=== PATIENT | female | born 1990 | race Caucasian/White ===

== ENCOUNTER 2018-06-11 09:20 | Inpatient (IN) | payer SELFPAY ==
[2018-06-11] VITALS (31 sets, daily range): BP systolic 97–136; BP diastolic 46–91; PULSE 61–103; TEMP 98.1–99
[~2018-06-11] VITALS: Ht 177.8 cm; Wt 84.1 kg
--- NOTE | 2018-06-11 09:20 | NUR ---
Patient to LR 5 via wheelchair, changed into gown, FHR/TOCO monitors placed and explained. Patient states "[place] a little trickle of fluid around 0400 this morning and then this morning I put a light day pad on and noticed wetness towards the front, then put a bigger pad and noticed more clear/pinkish fluid, feeling small cramps/small amount of pressure", Denies vagnial bleeding or regular contractions. 0930: SVE-1/60/-2 and no fluid noted-two negative amniotests at this time. VSS and assessment completed. Plan of care discussed and will continue to monitor.
[2018-06-11] MEDS ORDERED: LEVOXYL0.05 MG PO (09:34)
[2018-06-11] MEDS ORDERED: STOOL SOFTENER100 M2 PO (09:35)
[2018-06-11] MEDS ORDERED: CALCIUM CARBON650 M2 (09:35)
[2018-06-11] MEDS ORDERED: PRENATAL MVI (09:35)
--- NOTE | 2018-06-11 09:43 | NUR ---
0943: One contraction tracing at this time. Lasting around 1 minute, Patient states she does not feel any contractions.
--- NOTE | 2018-06-11 09:47 | NUR ---
0947: Patient off monitors to ambulate at this time.
--- NOTE | 2018-06-11 10:20 | NUR ---
1020: Dr. Michael at [facility] emergency department and reveiwing FHR strip and updated on patient. Order for amniosure at this time per Dr. Michael. 1040:FHR tracing maternal heart rate and FHR monitor adjusted. 1100: Dr. Michael notified of positive amnisure. 1110: Dr. Michael at bedside and discussed plan of care with patient. Patient agrees to AROM forebag and wait a couple hours before doing anything more. 1130: IV placed in left forearm per Neftaly RN, blood drawn and to lab. 1145: Dr. Michael at [id number]/-2 and AROM of forebag at this time and clear fluid 1229: Patient off monitor to ambulate.
[2018-06-11 13:27] LABS: BASO % 0.2 % (0.0-2.0); EOS # 0.1 (0.0-0.7); EOS % 0.7 % (0-4.0); GRAN # 6.3 (1.4-6.5); GRAN % 77.3 % (42.2-75.2); HEMOGLOBIN 11.8 g/dl (12.5-16.0); LYMPH # 1.3 (1.2-3.4); LYMPH % 15.3 % (20.0-51.0); MEAN CELL VOLUME 97 fl (80.0-100.0); MEAN CORPUSCULAR HEMOGLOBIN 34 pg (27.0-31.0); MEAN CORPUSCULAR HGB CONC 35 g/dl (33.0-37.0); MEAN PLATELET VOLUME 12.2 fl (7.4-10.4); MONO # 0.5 (0.1-0.6); MONO % 5.6 % (1.7-9.3); PLATELET COUNT 160 K/mm3 (130-400); RED BLOOD COUNT 3.51 M/mm3 (4.10-5.30); REDCELL DISTRIBUTION WIDTH-CV 12.9 % (11.5-14.5)
[2018-06-11 13:29] LABS: HEMATOCRIT 34.1 % (37.0-47.0)
--- NOTE | 2018-06-11 14:05 | NUR ---
1405: Patient back on monitors after ambulating. 1407:Pitocin started per Dr. Martin order and protocol.
--- NOTE | 2018-06-11 14:35 | NUR ---
Patient states feeling about three contractions and difficult to trace contractions at this time. TOCO adjusted.
--- NOTE | 2018-06-11 15:32 | NUR ---
1532: Patient off monitor to void and bowel movement. 1540: Patient still in bathroom and states she is doing okay. 1551: Patient back from bathroom and back on monitors.
--- NOTE | 2018-06-11 17:04 | NUR ---
Patient off monitor to void.
--- NOTE | 2018-06-11 17:30 | NUR ---
at bedside and discussing plan of care and that Dr. Leone will follow her throughout the night with labor/delivery. 1745: Patient vomits and feeling better. Will continue to monitor.
--- NOTE | 2018-06-11 18:10 | NUR ---
FHR tracing recurrent subtle late decelerations. Patient turned wedged left with peanut ball in place. Will continue to monitor.
--- NOTE | 2018-06-11 19:00 | NUR ---
1829- Bedside report from NAKUL Gonzalez. Pitocin infusing at 10mU. Patient tense and uncomfortable with contractions. SVE / with bloody show. at L&D desk updated. contact attempted x2 by NAKUL Gonzalez. 1834- at bedside. SVE Complete. Room set up for delivery. 1839- Patient begins pushing intermittently with MD. 1913- of viable baby boy. Cord clamped and cut by MD. Cord blood obtained. Pitocin off. 1917- Spontaneous delivery of placenta. Pitocin infusing at 333 ml/hr. Fundus massaged to firm by MD. Patient uncomfortable with fundal massage and repair. Fentanyl 50 mcg ordered. See eMAR. 2nd degree perineal lacertion and MLE repaired by . Pericare complete. Ice pack applied.
[2018-06-12] VITALS: BP 124/63; PULSE 78; TEMP 98.4
[2018-06-12 04:00] VITALS: BP 103/57; PULSE 65; TEMP 97.7
[2018-06-12 08:27] VITALS: BP 109/58; PULSE 67; TEMP 97.6
--- NOTE | 2018-06-12 09:02 | NUR ---
Initial visit; Parents thanked [employer] Operator for offering congratulations and God's blessings for the of their son. Con[employer] Operator thanked them for choosing [facility].
[2018-06-12 17:11] VITALS: BP 116/63; PULSE 63
[2018-06-12 20:40] VITALS: BP 104/60; PULSE 80; TEMP 98
[2018-06-13 06:48] VITALS: BP 102/77; PULSE 74; TEMP 98
[2018-06-13] MEDS ORDERED: IBU600 MG PO (08:54)
== END 2018-06-13 09:00 | disposition home or self-care (01) | DRG 807 ==
LOC: LDRO 09:20 → LDR 09:20 → LDRO 09:21 → LDR 09:22 → OB 23:30
PROVIDERS: ADMIT Student in an Organized Health Care Education/Training Program
PROC: 10E0XZZ Delivery of Products of Conception, External Approach (ICD-10-PCS; principal; 2018-06-11)
PROC: 0W8NXZZ Division of Female Perineum, External Approach (ICD-10-PCS; 2018-06-11)
DX: O70.1 Second degree perineal laceration during delivery (principal); Z37.0 Single live birth; O69.81X0 Labor and delivery complicated by cord around neck, without compression, not applicable or unspecified; Z3A.39 39 weeks gestation of pregnancy; O99.284 Endocrine, nutritional and metabolic diseases complicating childbirth; E03.9 Hypothyroidism, unspecified
CPT/HCPCS: J2590; J3010; J7120

== ENCOUNTER → 2018-06-20 | Outpatient (CLI) | payer SELFPAY ==
[~2018-06-20] MED LIST: CALCIUM CARBON650 M2; IBU600 MG PO; LEVOXYL0.05 MG PO; PRENATAL MVI; STOOL SOFTENER100 M2 PO
--- NOTE | 2018-06-23 08:35 | NUR ---
See scaned notes that were recorded during [employer] down time.
== END ==
LOC: LAC 14:55
DX: Z39.1 Encounter for care and examination of lactating mother (principal); Z71.89 Other specified counseling

== ENCOUNTER → 2018-06-24 | Outpatient (CLI) | payer SELFPAY ==
--- NOTE | 2018-06-24 12:34 | NUR ---
Pt, Ami Perry, presents to walk-in clinic with 13 day old baby boy, Ronald Perry. Her spouse is also present. This family was seen on 06/19/18 for assistance since Ronald was not able to latch and breastfeed at time of discharge. He was sence diagonosed with trachealmalacia. Ronald was born on [birth year] and weighed 7#13.8oz. At the appointment 5 days ago he weighed 7#8oz. Today Ronald weighs 7#15.2oz. Pt continues to breastfeed every 2-3 hours followed by about 45-60 ml EBM. He receives 2 bottle feedings without breast first in the noc, taking about 80-100ml. Pt is able to express enough milk that they do not need formula any longer for supplement. He continues to have wheezing intermittently during the feedings that causes him to slow his feeding to coordinate breathing. After bilaterally, with some struggles with wheezing and sleepiness, Ronald has a weight gain of 64gms (2.1 oz). POC: Continue , supplement and pumping plan. Work on weaning supplement as comfortable after a feeding that feels strong. Consider use of SNS. Pump at feedings he is supplemented, do not pump if he is not supplemented. Follow up: Pt indicates they will return to clinic next week, or make appt if desires follow up sooner. Questions invited and answered.
== END ==
LOC: LAC 11:55
DX: Z39.1 Encounter for care and examination of lactating mother (principal); Z71.89 Other specified counseling

== ENCOUNTER → 2018-07-01 | Outpatient (CLI) | payer SELFPAY ==
--- NOTE | 2018-07-01 13:15 | NUR ---
Pt, Ami Perry presents for outpatient consult with 3 week old baby boy, Ronald Perry. They have been working with this LC for difficult latch, low milk transfer and low milk supply. Ronald was born on [birth year] and weighed 7#13.8oz. 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 Wheezing is noted throughout feedings. Last week Ronald weighed 7#15.2oz (3606 gms). Today his weight is 8#9.4oz (3896 gms), for a gain of about 10oz in the last week. Ami states she is having trouble with more biting at feedings and wants latch checked. Pt is coached to compress more areola under lips and help flange lips out with latching. Pt states the latch is more comfortable. Pt also states the feedings seem to take a long time. Discussed how trachealmalcia causes the baby to eat slower to coordinate breathing. Milk supply has improved to exceed his intake needs and pumping has been reduced to only at feedings he gets supplement. Over the last week the supplement to Ronald has decreased to about every other feeding and the intake after has decrease to 30-40ml, sometimes as little as 10ml. He has had a couple bottles that were upto 80ml but they were after feeding lengths were restricted for time management. AFter today Ronald has a total weight gain of 68gms (2.4oz). He appears content. POC: Breastfeed ad tiny. Recognize that with the trachealmalcia he will need to take time with his . If time is an issue she can pump and bottle as he does not take as much time feeding by bottle. Pump as needed for comfort and to help with latching if breast is firm. Follow up: Anticipate they will be at walk-in clinic next week. Questions invited and answered.
== END ==
LOC: OLC 12:24
DX: Z39.1 Encounter for care and examination of lactating mother (principal); Z71.89 Other specified counseling

== ENCOUNTER → 2018-07-08 | Outpatient (CLI) | payer SELFPAY ==
--- NOTE | 2018-07-08 11:41 | NUR ---
Pt, Ami Perry, presents for walk-in clinic with four week old baby boy, Ronald Perry. They have been checking in weekly as Ronald had a slow start to . Ronald was born on [birth year] and weighed 7#13.8oz (3606 gms). Last week Ronald weighed 8#9.4oz (3896 gms). Today Ronald weighs 9#6.4oz (4260 gms). Ronald has had only 3-4 supplement bottle feeds in the last week, taking 3-4oz per bottle. After Ronald has a weight gain of 3.1oz. POC: Continue ad tiny, pump if needed for comfort. Bottle feed prn for convenience. Follow up: Walk in clinic as desired, Dr. Rodas next week. Questions invited and answered.
== END ==
LOC: LAC 11:18
DX: Z39.1 Encounter for care and examination of lactating mother (principal); Z71.89 Other specified counseling

== ENCOUNTER → 2018-07-29 | Outpatient (CLI) | payer SELFPAY ==
--- NOTE | 2018-07-29 11:32 | NUR ---
Pt, Ami Perry, presents for walk-in BF clinic with 7 week old baby boy, Ronald Perry. They have been to previous clinic for assistance and are checking to make sure Ronald continues to meet expectations. Ronald was born on [birth year] and weighed 7#13.8oz. They had some initial troubles that they have successfully worked through and now he is exclusively drinking breastmilk. Ronald was seen on 07/08/18 at his well baby appt. weighed 10#2oz for a gain of 11.6oz over 11 days. Today Ronald weighs 11#2.9oz for a gain of 1#0.9oz in the last 11 days. Pt is advised on use of traditional cradle hold, Ronald latches well and after has a total weight gain of 68gms (2.4oz). Ronald does receive one 2-4oz bottle of EBM daily. General infant feeding questions answered, Pt verbalizes understanding. POC: continue prn. Follow up: Walk in clinic as desired.
== END ==
LOC: OLC 10:57
DX: Z39.1 Encounter for care and examination of lactating mother (principal); Z71.89 Other specified counseling

== ENCOUNTER → 2018-09-30 | Outpatient (CLI) | payer SELFPAY ==
--- NOTE | 2018-09-30 12:35 | NUR ---
Pt, Ami Perry presents to walk-in clinic with nearly 4 month old baby boy, Ronald Perry, for a evaluation and weight check. They have been nursing independantly, pt is interested in knowing how much he drinks per feeding and his weight. Ronald was born on [birth year] and weighed 7#13.8oz. Pt states at his 2 month appointment he was 12# but could not recall the ounces. Today Ronald weighs 15#11.6oz, for an appropriate weight gain for his age. Pt breastfeds while here, he has a weight gain of 80gms after, and is content. Questions about breast milk storage addressed, pt describes stored milk is rejected by Ronald. LC discusses Lipase in milk that can "sour" it, Pt agrees the milk smells different, will work on evaluation of frozen milk supply. LC describes how to flash heat milk after collection for storage purposes. POC: Continue ad tiny. Follow up with LC with milk storage questions.
== END ==
LOC: LAC 10:56
DX: Z39.1 Encounter for care and examination of lactating mother (principal); Z71.89 Other specified counseling

== ENCOUNTER 2020-01-15 09:03 | Inpatient (IN) | payer SELFPAY ==
[2020-01-15] VITALS (16 sets, daily range): BP systolic 101–131; BP diastolic 55–73; PULSE 66–95; TEMP 98–98.5
[~2020-01-15] VITALS: Ht 177.8 cm; Wt 85.9 kg
[2020-01-15] MEDS ORDERED: SYNTHROID0.075 MG/T PO (09:31)
--- NOTE | 2020-01-15 09:34 | NUR ---
Pt presents to unit ambulatory reporting contractions or "cramping" about every 5 minutes for over an hour. Pt states she feels increasing "wetness" but denies gushing of fluid. Pt denies vaginal bleeding, reports good movement. Pt changed into gown and rests on bed. EFM applied, vitals taken. SVE 3+/70/-2. Assessment completed, plan to monitor for 1 hour and repeat SVE discussed with pt and verbal consent obtained. Dr. Michael aware of pt presentation to unit.
[2020-01-15 12:31] LABS: BASO % 0.3 % (0.0-2.0); EOS # 0.1 (0.0-0.7); EOS % 0.8 % (0-4.0); GRAN # 9.2 (1.4-6.5); GRAN % 81.1 % (42.2-75.2); HEMATOCRIT 39.3 % (37.0-47.0); HEMOGLOBIN 13.3 g/dl (12.5-16.0); LYMPH # 1.4 (1.2-3.4); LYMPH % 12.2 % (20.0-51.0); MEAN CELL VOLUME 96 fl (80.0-100.0); MEAN CORPUSCULAR HEMOGLOBIN 33 pg (27.0-31.0); MEAN CORPUSCULAR HGB CONC 34 g/dl (33.0-37.0); MEAN PLATELET VOLUME 11.4 fl (7.4-10.4); MONO # 0.6 (0.1-0.6); PLATELET COUNT 202 K/mm3 (130-400); RED BLOOD COUNT 4.09 M/mm3 (4.10-5.30); REDCELL DISTRIBUTION WIDTH-CV 12.9 % (11.5-14.5)
--- NOTE | 2020-01-15 13:00 | NUR ---
PT off monitors at this time, ambulating about room and sitting on ball.
[2020-01-15] MEDS ORDERED: MOTRIN 800800 MG/TAB PO (16:50)
--- NOTE | 2020-01-15 17:26 | NUR ---
1343 - 1420 pt off monitor to walk halls and use ball 1526 - Dr. Michael to pt bedside. SVE per provider 6/100/0. AROM at this time, clear fluid noted. Pt repositioned for comfort. [id number] - pt off monitors to walk, pt reports feeling "a lot" of pressure and feeling like she needed to use the bathroom with contractions. Pt back in bed at 1615, SVE 9100/0. Dr. Lange notified and requested to come to hospital. Luz Cuevas RN of nursery notified. Pt remains in bed at this time, back on monitors at 1620. RN remains at bedside. 1623 - Dr. Lange to bedside, gowns and gloves. Pt and room prepped for delivery. Luz Cuevas RN of nursery called to room. Pt complete at 1624 per provider, begins pushing with contractions 1629 - Female infant delivered spontaneously by Dr. Lange and placed on mother's abdomen. Cord clamped and cut by Dr. Lange, infant placed skin to skin with mother. Care of infant transferred to Luz Cuevas RN of nursery. Placenta spontaneously delivered by Dr. Lange at 1632. Cord blood collected, pitocin started per protocol. 2nd degree perineal repair performed by Dr. Lange. Pericare provided, clean panties and pad placed. Pt repositioned for comfort. Denies further needs at this time.
[2020-01-16 04:00] VITALS: BP 92/50; PULSE 75; TEMP 98.2
[2020-01-16 06:40] VITALS: BP 116/70; PULSE 85; TEMP 97.8
[2020-01-16 07:33] LABS: HEMOGLOBIN 11.7 g/dl (12.5-16.0); MEAN CELL VOLUME 98 fl (80.0-100.0); MEAN CORPUSCULAR HEMOGLOBIN 33 pg (27.0-31.0); MEAN CORPUSCULAR HGB CONC 34 g/dl (33.0-37.0); MEAN PLATELET VOLUME 11.4 fl (7.4-10.4); PLATELET COUNT 157 K/mm3 (130-400); RED BLOOD COUNT 3.53 M/mm3 (4.10-5.30)
[2020-01-16 07:39] LABS: HEMATOCRIT 34.5 % (37.0-47.0)
[2020-01-16 10:56] LABS: BAND 2 % (0-10); LYMPHOCYTE 15 % (20.0-51.0); NEUTROPHILS 79 % (42.0-75.2); PLATELET ESTIMATE NORMAL (NORMAL)
[2020-01-16 11:20] VITALS: BP 113/65; PULSE 74; TEMP 98.4
[2020-01-16 16:30] VITALS: BP 120/57; PULSE 73; TEMP 98
[2020-01-16 21:15] VITALS: BP 97/63; PULSE 73; TEMP 98.8
[2020-01-17 07:00] VITALS: BP 112/72; PULSE 87; TEMP 97.7
== END 2020-01-17 13:10 | disposition home or self-care (01) | DRG 807 ==
LOC: LDRO 09:03 → LDR 09:40 → LDRO 11:54 → LDR 11:55 → OB 18:29
PROVIDERS: Obstetrics & Gynecology; ADMIT Student in an Organized Health Care Education/Training Program
PROC: 10E0XZZ Delivery of Products of Conception, External Approach (ICD-10-PCS; principal; 2020-01-15)
PROC: 0KQM0ZZ Repair Perineum Muscle, Open Approach (ICD-10-PCS; 2020-01-15)
PROC: 10907ZC Drainage of Amniotic Fluid, Therapeutic from Products of Conception, Via Natural or Artificial Opening (ICD-10-PCS; 2020-01-15)
DX: O99.284 Endocrine, nutritional and metabolic diseases complicating childbirth (principal); Z37.0 Single live birth; E03.9 Hypothyroidism, unspecified; O99.12 Other diseases of the blood and blood-forming organs and certain disorders involving the immune mechanism complicating childbirth; D69.6 Thrombocytopenia, unspecified; O70.1 Second degree perineal laceration during delivery; Z3A.39 39 weeks gestation of pregnancy
CPT/HCPCS: J2590; J7120

== ENCOUNTER → 2020-01-25 | Outpatient (CLI) | payer SELFPAY ==
[~2020-01-25] MED LIST changes: +MOTRIN 800800 MG/TAB PO; +SYNTHROID0.075 MG/T PO
--- NOTE | 2020-01-25 13:06 | NUR ---
Pt, Ami Perry, presents for outpatient consult with 10 day old baby girl, Keiko Perry, to evaluate transfer, as pt was concerned about milk supply at the end of last week. Keiko Perry was born on 01[birth year]15/2020 and weighed 7#11.5oz (2500 gms). She was seen by Dr. Rodas on 01/20/2020 and weighed 7#3.8oz. Today Keiko weighs 7#10.3oz (3466 gms) for a gain of 7.7oz over the last 5 days. Pt states her milk supply did increase over the weekend, baby is latching well, and making QS voids and stools. Pt has pumped 2-3 times per day to ensure milk supply and reports collecting 2-3oz each time. Keiko gets a little EBM a couple times a day, 20-30ml per supplement. Pt handles baby and breast well. After Keiko has a weight gain of 2.9oz (84 gms). POC: Continue ad tiny. F/U: With Dr. Rodas as scheduled. Questions invited and answered.
== END ==
LOC: LAC 12:41
DX: Z39.1 Encounter for care and examination of lactating mother (principal); Z71.89 Other specified counseling